=== PATIENT | female | born 1935 | race Caucasian/White ===

== ENCOUNTER 2023-02-09 11:34 | Emergency (ER) | payer MEDICARE ==
[2023-02-09] MEDS ORDERED: Ondansetron PF 4 MG/2 ML Vial ONE (13:10)
[2023-02-09] MEDS ORDERED: Metoprolol Tartrate 5 MG/5 ML VIAL ONE (13:10)
[2023-02-09 13:16] LABS: #Monocytes 0.6 10x3/uL (0.0-1.1); #Neutrophils 7.6 10x3/uL (1.5-8.4); %Basophils 0.4 % (0.0-2.0); %Lymphocytes 7.8 % (18.0-47.0); %Monocytes 6.5 % (0.0-10.0); %Neutrophils 84.9 % (40.0-75.0); Hematocrit 29.1 % (34.9-44.5); Hemoglobin 9.2 g/dL (12.0-15.5); Mean Corpuscular HGB CONC 31.6 g/dL (32.0-36.0); Mean Corpuscular Hemoglobin 24.3 pg (27.0-33.0); Mean Corpuscular Volume 76.8 fl (81.6-98.3); Mean Platelet Volume 10.5 fl (7.4-10.4); Platelet Count 294 10x3/uL (150-450); RBC Distribution Width 14.9 % (11.5-14.5); Red Blood Cell (RBC) Count 3.79 10x6/uL (3.90-5.03); White Blood Cell (WBC) Count 8.9 10x3/uL (3.5-10.5)
[2023-02-09 13:26] LABS: ALT (SGPT) 16 U/L (8-55); AST (SGOT) 25 U/L (5-34); Albumin 4.3 g/dL (3.4-4.8); Alkaline Phosphatase 110 U/L (40-110); Anion Gap 17 mmol/L (10-20); BUN (Urea Nitrogen) 11 mg/dL (9.8-20.1); Bilirubin, Total 0.5 mg/dL (0.2-1.2); Calc. Creatinine Clearance 0 mL/min (70-130); Carbon Dioxide 22 mmol/L (23-31); Chloride 101 mmol/L (98-107); Estimated GFR 62; Globulin 2.3 g/dL (2.4-3.5); Glucose 109 mg/dL (83-110); Potassium 4.3 mmol/L (3.5-5.1); Protein, Total 6.6 g/dL (5.8-8.1); Sodium 136 mmol/L (136-145)
[2023-02-09 13:32] LABS: Troponin I 0.022 ng/mL (< 0.028)
[2023-02-09 16:02] LABS: Bilirubin Neg (Negative); Blood, Urine 150 (Negative); Clarity Clear (Clear); Glucose, Urine (Dipstick) Normal (Negative); Ketone, Urine 15 mg/dL (Negative); Leukocyte 25 (Negative); Nitrite Negative (Negative); Protein, Urine (Dipstick) 100 mg/dl (Neg-Trace); Urobilinogen Normal mg/dL (Less than 2)
[2023-02-09 16:41] LABS: SARS-CoV-2 NAA Rapid Test DETECTED (NotDetected)
[2023-02-09 16:50] LABS: Bacteria/HPF 1+ HPF (None Seen); CAUTI Indications for Culture Alt mental st,lethar; Squamous Epithelial 0-3 HPF (0-3); Urine Culture Reflex No No; WBC/HPF 0-3 HPF (0-3)
[2023-02-09] MEDS ORDERED: Labetalol HCl 100 MG/20 ML VIAL ONE ×2 (17:29→18:08)
== END 2023-02-09 18:21 | disposition home or self-care (01) ==
LOC: CSHERS 11:34
DX: U07.1 COVID-19 (principal); I48.91 Unspecified atrial fibrillation; I11.0 Hypertensive heart disease with heart failure; I50.9 Heart failure, unspecified; G43.909 Migraine, unspecified, not intractable, without status migrainosus; Z79.01 Long term (current) use of anticoagulants
CPT/HCPCS: 0240U; 71045; 80053; 81001; 84484; 85025; 96374; 96375; 96376; J2405